=== PATIENT | male | born 1930 | race Hispanic/Latino ===

== ENCOUNTER → 2019-12-11 | Outpatient (CLI) | payer OTHER ==
[~2019-12-11] MED LIST: ALBU2.5V2 IH; CALC-1038 PO; CETI10CA5 PO; CYAN250 PO; IRON PO; OMEG1TAB4 PO
--- NOTE | 2019-12-11 11:30 | NUR ---
MBSS COMPLETED. +S/S OF ASPIRATION. RECOMMEND LONG-TERM ALTERNATE MEANS OF NUTRITION/HYDRATION (REFUSED BY Pt), ALTERNATIVE RECOMMENDATIONS PUREED, THIN LIQUIDS; PILLS CRUSHED. SHIP SCALER EDUCATED Pt AND FAMILY ON RISKS AND CONSEQUENCES OF ASPIRATION INCLUDING ASPIRATION PNEUMONIA, DRUG RESISTANT PNEUMONIA, RESPIRATORY ISSUES. HE VERBALIZED UNDERSTANDING AND WOULD CONTINUE TO PARTICIPATE IN P.O. WITH RISKS OF ASPIRATION. REPORTS THAT Pt HAS BEEN DEVELOPING RESPIRATORY ISSUES IN THE RECENT MONTHS. ALL QUESTIONS ANSWERED AT THIS TIME. Addendum: 12/11/19 at 1349 by STEPHEN ZAPATA, [facility] Amended: Links added.
== END | disposition home or self-care (01) ==
LOC: RAH 10:18
PROVIDERS: ATTEND Internal Medicine Gastroenterology
DX: R13.13 Dysphagia, pharyngeal phase (principal); K22.2 Esophageal obstruction
CPT/HCPCS: 74230; 92611